=== PATIENT | male | born 1945 | race Caucasian/White ===

== ENCOUNTER → 2017-03-09 | Outpatient (CLI) | payer MEDICARE, OTHER | LOC: LAB 12:01 | DX: I10 Essential (primary) hypertension (principal); M10.9 Gout, unspecified; E78.2 Mixed hyperlipidemia; R73.01 Impaired fasting glucose; S60.450A Superficial foreign body of right index finger, initial encounter ==

== ENCOUNTER → 2017-12-09 | Outpatient (CLI) | payer MEDICARE, OTHER ==
[2017-12-09 14:54] LABS: ALBUMIN 4.4 g/dL (3.5-5.0); BUN/CREATININE RATIO 19.7 (6.0-26.0); CALCIUM 8.6 mg/dL (8.4-10.2); POTASSIUM 5.2 mmol/L (3.6-5.0); TOTAL BILIRUBIN 0.6 mg/dL (0.2-1.3); TOTAL PROTEIN 8.3 g/dL (6.3-8.2)
[2017-12-09 15:29] LABS: EOS # 0.2 (0.04-0.40); HEMATOCRIT 53.7 % (42.0-52.0); HEMOGLOBIN 17.9 g/dL (13.5-18.0); LYMPH# 1.8 (1.50-4.00); MEAN CELL VOLUME 96 fl (78-100); MEAN CORPUSCULAR HEMOGLOBIN 32 pg (27-31); MEAN CORPUSCULAR HGB CONC 33 g/dL (33-37); MEAN PLATELET VOLUME 9.3 fl (7.4-10.4); MONO # 0.5 (0.20-0.80); NEU # 4.1 (1.40-6.50); PLATELET COUNT 199 K/mm3 (130-400); RED BLOOD COUNT 5.57 M/mm3 (4.20-5.60); RED CELL DISTRIBUTION WIDTH 12.9 % (11.5-14.5); WHITE BLOOD COUNT 6.6 K/mm3 (4.8-10.8)
[2017-12-09 15:50] LABS: PROTHROMBIN TIME 9.3 SECONDS (9.0-12.0)
== END ==
LOC: LAB 13:43
PROVIDERS: Family Medicine
DX: I48.91 Unspecified atrial fibrillation (principal); I63.9 Cerebral infarction, unspecified

== ENCOUNTER 2018-04-03 12:17 | Emergency (ER) | payer MEDICARE, OTHER ==
[~2018-04-03] VITALS: Ht 177.8 cm; Wt 81.8 kg
[2018-04-03 12:39] LABS: HEMATOCRIT 47.5 % (42.0-52.0); HEMOGLOBIN 16.1 g/dL (13.5-18.0); MEAN CELL VOLUME 94 fl (78-100); MEAN CORPUSCULAR HEMOGLOBIN 32 pg (27-31); MEAN CORPUSCULAR HGB CONC 34 g/dL (33-37); MEAN PLATELET VOLUME 8.4 fl (7.4-10.4); PLATELET COUNT 274 K/mm3 (130-400); RED BLOOD COUNT 5.07 M/mm3 (4.20-5.60); RED CELL DISTRIBUTION WIDTH 13.6 % (11.5-14.5); WHITE BLOOD COUNT 9.1 K/mm3 (4.8-10.8)
[2018-04-03] MEDS ORDERED: AMLODIPINE BESY10 MG PO (12:48)
[2018-04-03] MEDS ORDERED: ZOLPIDEM TART10 MG PO (12:48)
[2018-04-03] MEDS ORDERED: LISINOPRIL10 MG PO (12:48)
[2018-04-03] MEDS ORDERED: ASPIRIN ADULT L81 M3 PO (12:48)
[2018-04-03] MEDS ORDERED: ELIQUIS5 MG PO (12:48)
[2018-04-03] MEDS ORDERED: SOTALOL HYDROCH80 MG PO (12:48)
[2018-04-03 12:55] LABS: ALBUMIN 4.4 g/dL (3.5-5.0); CALCIUM 9.9 mg/dL (8.4-10.2); LYMPHOCYTE 21 % (20-51); MONOCYTE 8 % (3-10); NEUTROPHILS 57 % (42-75); POTASSIUM 4.8 mmol/L (3.6-5.0); TOTAL BILIRUBIN 0.9 mg/dL (0.2-1.3); TOTAL PROTEIN 7.7 g/dL (6.3-8.2)
[2018-04-03 13:49] LABS: URINE APPEARANCE CLEAR; URINE BILIRUBIN NEGATIVE (NEGATIVE); URINE BLOOD NEGATIVE (NEGATIVE); URINE COLOR YELLOW; URINE GLUCOSE NEGATIVE (NEGATIVE); URINE KETONE 2+ (NEGATIVE); URINE LEUKOCYTE ESTERASE NEGATIVE (NEGATIVE); URINE MUCUS PRESENT (NOT PRESENT); URINE NITRATE NEGATIVE (NEGATIVE); URINE PROTEIN(semi-quant) TRACE mg/dL (NEGATIVE); URINE UROBILINOGEN NORMAL (NORMAL)
[2018-04-03 15:39] VITALS: BP 128/82
[2018-04-04] MEDS ORDERED: ASPIRIN 32325 MG/TAB PO (16:20)
== END 2018-04-03 14:18 | disposition other institution (70) ==
LOC: ED 12:17
PROVIDERS: Nurse Practitioner Primary Care
DX: I63.9 Cerebral infarction, unspecified (principal); R47.89 Other speech disturbances; R29.810 Facial weakness; I49.9 Cardiac arrhythmia, unspecified; Z86.73 Personal history of transient ischemic attack (TIA), and cerebral infarction without residual deficits; E78.5 Hyperlipidemia, unspecified; E11.9 Type 2 diabetes mellitus without complications; M10.9 Gout, unspecified; Z79.01 Long term (current) use of anticoagulants; Z79.82 Long term (current) use of aspirin; Z79.899 Other long term (current) drug therapy; R40.2412 Glasgow coma scale score 13-15, at arrival to emergency department; I48.92 Unspecified atrial flutter

== ENCOUNTER → 2018-04-05 | Outpatient (CLI) | payer MEDICARE, OTHER ==
[2018-04-04 14:58] VITALS: BP 127/80
[~2018-04-05] MED LIST: AMLODIPINE BESY10 MG PO; ASPIRIN 32325 MG/TAB PO; ASPIRIN ADULT L81 M3 PO; ELIQUIS5 MG PO; LISINOPRIL10 MG PO; SOTALOL HYDROCH80 MG PO; ZOLPIDEM TART10 MG PO
== END ==
LOC: RAD 08:03
DX: I63.81 Other cerebral infarction due to occlusion or stenosis of small artery (principal); G31.9 Degenerative disease of nervous system, unspecified

== ENCOUNTER 2018-06-16 11:00 | Outpatient (RCR) | payer MEDICARE, OTHER ==
[2018-04-04 14:58] VITALS: BP 127/80
== END 2018-06-16 11:30 | disposition home or self-care (01) ==
LOC: SPEECH
DX: I69.322 Dysarthria following cerebral infarction (principal); I69.392 Facial weakness following cerebral infarction

== ENCOUNTER → 2018-10-05 | Outpatient (CLI) | payer MEDICARE, OTHER ==
[2018-04-04 14:58] VITALS: BP 127/80
[2018-10-05 15:57] LABS: CALCIUM 9.9 mg/dL (8.8-10.0)
== END ==
LOC: LAB 14:55
DX: I48.3 Typical atrial flutter (principal); I48.1 Persistent atrial fibrillation; I10 Essential (primary) hypertension; G45.2 Multiple and bilateral precerebral artery syndromes

== ENCOUNTER → 2019-11-15 | Outpatient (CLI) | payer MEDICARE, OTHER ==
[2018-04-04 14:58] VITALS: BP 127/80
[2019-11-15 13:49] LABS: POTASSIUM 4.9 mmol/L (3.5-5.1)
[2019-11-15 13:50] LABS: CALCIUM 9.8 mg/dL (8.3-10.5)
[2019-11-15 13:52] LABS: HEMATOCRIT 40.2 % (42.0-52.0); HEMOGLOBIN 12.7 g/dL (13.5-18.0); MEAN CELL VOLUME 96 fl (78-100); MEAN CORPUSCULAR HEMOGLOBIN 31 pg (27-31); MEAN CORPUSCULAR HGB CONC 32 g/dL (33-37); MEAN PLATELET VOLUME 8.7 fl (7.4-10.4); PLATELET COUNT 201 K/mm3 (130-400); RED BLOOD COUNT 4.17 M/mm3 (4.20-5.60); RED CELL DISTRIBUTION WIDTH 13.7 % (11.5-14.5); WHITE BLOOD COUNT 5.1 K/mm3 (4.8-10.8)
[2019-11-15 13:57] LABS: MAGNESIUM 1.72 mg/dL (1.60-2.60)
[2019-11-15 14:33] LABS: LYMPHOCYTE 43 % (20-51); MONOCYTE 4 % (3-10); NEUTROPHILS 49 % (42-75)
== END ==
LOC: LAB 13:22
DX: I48.19 Other persistent atrial fibrillation (principal); G45.2 Multiple and bilateral precerebral artery syndromes; I10 Essential (primary) hypertension; E78.2 Mixed hyperlipidemia; I27.20 Pulmonary hypertension, unspecified

== ENCOUNTER → 2020-11-18 | Outpatient (CLI) | payer MEDICARE, OTHER ==
[2020-11-18 12:34] LABS: BASO # 0.04 (0.02-0.10); EOS # 0.18 (0.04-0.40); EOS % 2.9 % (0.0-4.0); HEMATOCRIT 47.2 % (42.0-52.0); HEMOGLOBIN 15.7 g/dL (13.5-18.0); LYMPH# 1.51 (1.50-4.00); MEAN CELL VOLUME 94 fl (78-100); MEAN CORPUSCULAR HEMOGLOBIN 31 pg (27-31); MEAN CORPUSCULAR HGB CONC 33 g/dL (33-37); MEAN PLATELET VOLUME 8.8 fl (7.4-10.4); MONO # 0.68 (0.20-0.80); NEU # 3.74 (1.40-6.50); PLATELET COUNT 219 K/mm3 (130-400); RED BLOOD COUNT 5.03 M/mm3 (4.20-5.60); RED CELL DISTRIBUTION WIDTH 14.3 % (11.5-14.5); WHITE BLOOD COUNT 6.2 K/mm3 (4.8-10.8)
[2020-11-18 12:38] LABS: ALBUMIN 3.9 g/dL (3.4-4.8); POTASSIUM 4.6 mmol/L (3.5-5.1)
[2020-11-18 12:39] LABS: CALCIUM 9.4 mg/dL (8.3-10.5)
[2020-11-18 12:41] LABS: TOTAL PROTEIN 7.1 g/dL (6.2-8.1)
[2020-11-18 12:42] LABS: TOTAL BILIRUBIN 0.9 mg/dL (0.2-1.2)
== END ==
LOC: LAB 11:39
PROVIDERS: Family Medicine
DX: Z00.00 Encounter for general adult medical examination without abnormal findings (principal); I48.19 Other persistent atrial fibrillation; Z79.01 Long term (current) use of anticoagulants

== ENCOUNTER → 2020-12-04 | Outpatient (CLI) | payer MEDICARE, OTHER | LOC: RAD 20:30 | DX: M51.16 Intervertebral disc disorders with radiculopathy, lumbar region (principal) | CPT/HCPCS: A9585 ==

== ENCOUNTER → 2021-02-23 | Outpatient (CLI) | payer MEDICARE, OTHER ==
[~2021-02-23] VITALS: Ht 180.3 cm; Wt 80.0 kg
[2021-02-23 13:19] VITALS: BP 158/104
--- NOTE | 2021-02-23 14:00 | NUR ---
patient sent from walk in clinic for outpatient soap suds enema. patient scheduled for preop ekg tomorrow will do ekg today since patient is already a facility. this nurse educated patient on plan and about ekg and soap suds enema. patient verbalized udnerstanding. after talking with patient patient states "you know what i actually think i could go right now can i try" patient in bathroom. had what patient reported to be a large bowel movement. patient states "it seemed like it was a good one i feel like it helped but it felt like i was just going these square blocks it was not easy" patient has hemorrhoids. getting patient's health history for outpatient assessment per protocal patient reports having history of perforated bowel during colonoscopy. will notify provider of patient's history prior to giving enema. patient's ekg obtained. ekg report showed changes from previous ekgs and interpretation from machine showed t-wave abnormality and to consider anterior ischemia. obtained 2 ekgs. ekg reports given to mello petersen aprn to review and notified of patient's history of perforated bowel. gerardo petersen in to see patient. patient fdenies any chest pain or shortness of breath. orders not to do soap suds enema since patient had bm. ekgs reviewed by provider. patient okay to go home at this time. no need for further workup at this time. asked mello petersen if ekg reports needed to be taken to vinnie patient's pcp and ordering doctor. provider is going to take ekgs to to review. ekgs given to syeda pinedo for to review. patient okay to go home.
[2021-02-23 14:08] VITALS: BP 160/106
--- NOTE | 2021-02-23 14:17 | NUR ---
at 1408 patient's blood pressure rechecked prior to sending patient home. bp 160/106 heart rate 73 spo2 95%. gerardo petersen aprn notified. no need for intervention at this time.
== END ==
LOC: AMSURD 12:38
DX: Z01.89 Encounter for other specified special examinations (principal); K59.00 Constipation, unspecified

== ENCOUNTER → 2021-03-11 | Outpatient (CLI) | payer MEDICARE, OTHER ==
[2021-03-11 15:39] LABS: URINE WBC 0 /hpf (0-3)
[2021-03-11 16:11] LABS: URINE APPEARANCE CLEAR; URINE COLOR YELLOW; URINE PROTEIN(semi-quant) TRACE mg/dL (NEGATIVE)
[2021-03-11 16:12] LABS: URINE BILIRUBIN NEGATIVE (NEGATIVE); URINE BLOOD NEGATIVE (NEGATIVE); URINE GLUCOSE NEGATIVE (NEGATIVE); URINE KETONE 2+ (NEGATIVE); URINE LEUKOCYTE ESTERASE NEGATIVE (NEGATIVE); URINE NITRATE NEGATIVE (NEGATIVE); URINE UROBILINOGEN NORMAL (NORMAL)
== END ==
LOC: LAB 14:46
PROVIDERS: Family Medicine
DX: Z01.818 Encounter for other preprocedural examination (principal)

== ENCOUNTER → 2022-01-07 | Outpatient (CLI) | payer MEDICARE, OTHER ==
[2022-01-07 17:36] LABS: BASO # 0.02 K/mm3 (0.02-0.10); EOS # 0.09 K/mm3 (0.04-0.40); HEMATOCRIT 43.9 % (42.0-52.0); HEMOGLOBIN 14.9 g/dL (13.5-18.0); LYMPH# 1.16 K/mm3 (1.50-4.00); MEAN CELL VOLUME 103 fl (78-100); MEAN CORPUSCULAR HEMOGLOBIN 35 pg (27-31); MEAN CORPUSCULAR HGB CONC 34 g/dL (33-37); MEAN PLATELET VOLUME 8.4 fl (7.4-10.4); PLATELET COUNT 138 K/mm3 (130-400); RED BLOOD COUNT 4.28 M/mm3 (4.20-5.60); WHITE BLOOD COUNT 4.6 K/mm3 (4.8-10.8)
[2022-01-07 17:49] LABS: POTASSIUM 4.1 mmol/L (3.5-5.1)
[2022-01-07 17:50] LABS: CALCIUM 9.5 mg/dL (8.3-10.5)
[2022-01-07 17:54] LABS: TOTAL BILIRUBIN 0.7 mg/dL (0.2-1.2)
== END ==
LOC: LAB 17:19
PROVIDERS: Family Medicine
DX: Z00.00 Encounter for general adult medical examination without abnormal findings (principal); E78.5 Hyperlipidemia, unspecified; I48.91 Unspecified atrial fibrillation; I10 Essential (primary) hypertension; I63.40 Cerebral infarction due to embolism of unspecified cerebral artery; M54.41 Lumbago with sciatica, right side; I34.1 Nonrheumatic mitral (valve) prolapse; E66.9 Obesity, unspecified; F51.01 Primary insomnia; R73.01 Impaired fasting glucose; Z72.0 Tobacco use

== ENCOUNTER → 2022-06-25 | Outpatient (CLI) | payer MEDICARE, OTHER | LOC: AMSURD 17:42 | DX: R51.9 Headache, unspecified (principal) ==

== ENCOUNTER → 2022-06-25 | Outpatient (CLI) | payer MEDICARE, OTHER ==
[2022-06-25 15:50] LABS: BASO # 0.03 K/mm3 (0.02-0.10); EOS # 0.16 K/mm3 (0.04-0.40); EOS % 2.5 % (0.0-4.0); HEMATOCRIT 42.6 % (42.0-52.0); HEMOGLOBIN 14.2 g/dL (13.5-18.0); LYMPH# 1.47 K/mm3 (1.50-4.00); MEAN CELL VOLUME 104 fl (78-100); MEAN CORPUSCULAR HEMOGLOBIN 35 pg (27-31); MEAN CORPUSCULAR HGB CONC 33 g/dL (33-37); MEAN PLATELET VOLUME 8.4 fl (7.4-10.4); MONO # 0.57 K/mm3 (0.20-0.80); PLATELET COUNT 203 K/mm3 (130-400); WHITE BLOOD COUNT 6.4 K/mm3 (4.8-10.8)
[2022-06-25 15:58] LABS: ALBUMIN 4.1 g/dL (3.4-4.8); POTASSIUM 3.8 mmol/L (3.5-5.1)
[2022-06-25 15:59] LABS: CALCIUM 10.3 mg/dL (8.3-10.5)
[2022-06-25 16:00] LABS: TOTAL PROTEIN 7.3 g/dL (6.2-8.1)
[2022-06-25 16:54] LABS: ERYTHROCYTE SEDIMENTATION RATE 35 mm/hr (0-20)
== END ==
LOC: LAB 15:28
PROVIDERS: Nurse Practitioner
DX: I67.82 Cerebral ischemia (principal); G31.9 Degenerative disease of nervous system, unspecified

== ENCOUNTER → 2023-05-11 | Outpatient (CLI) | payer MEDICARE, OTHER ==
[2023-05-11 14:53] LABS: CALCIUM 8.9 mg/dL (8.3-10.5)
[2023-05-11 14:54] LABS: TOTAL PROTEIN 6.8 g/dL (6.2-8.1)
== END ==
LOC: LAB 14:35
DX: I48.0 Paroxysmal atrial fibrillation (principal); I50.32 Chronic diastolic (congestive) heart failure; Z79.899 Other long term (current) drug therapy

== ENCOUNTER → 2023-10-05 | Outpatient (CLI) | payer MEDICARE, OTHER ==
[2023-10-07 22:10] LABS: ALBUMIN 4.1 g/dL (3.4-4.8); CALCIUM 9.4 mg/dL (8.3-10.5); TOTAL BILIRUBIN 1.3 mg/dL (0.2-1.2); TOTAL PROTEIN 6.8 g/dL (6.2-8.1)
== END ==
LOC: LAB 12:48
PROVIDERS: Internal Medicine Cardiovascular Disease
DX: I50.32 Chronic diastolic (congestive) heart failure (principal); I48.0 Paroxysmal atrial fibrillation; Z79.899 Other long term (current) drug therapy